=== PATIENT | male | born 1990 | race African-American/Black ===

== ENCOUNTER 2021-08-25 12:39 | Emergency (ER) | payer SELFPAY ==
[2021-08-25] MEDS ORDERED: Ibuprofen 200 MG TAB ONE (14:55)
== END 2021-08-25 14:54 | disposition home or self-care (01) ==
LOC: CSHERS 12:39
DX: S83.412A Sprain of medial collateral ligament of left knee, initial encounter (principal); F17.290 Nicotine dependence, other tobacco product, uncomplicated; X50.1XXA Overexertion from prolonged static or awkward postures, initial encounter